=== PATIENT | male | born 1980 | race American Indian/Alaskan Native ===

== ENCOUNTER 2017-02-14 19:32 | Emergency (ER) | payer BC, OTHER ==
--- NOTE | 2017-02-14 20:11 | EDM.PDOC ---
ED HPI GENERAL MEDICAL PROBLEM - General Chief Complaint: Lower Extremity Injury/Pain Stated Complaint: ACHILLES RUPTURED, [id number] Time Seen by Provider: 02/14/17 20:07 Source of Information: Reports: Patient History Limitations: Reports: No Limitations - History of Present Illness INITIAL COMMENTS - FREE TEXT/NARRATIVE: Running to first base and felt loud pop in left heel. Unable to bear weight since. Sever pain to heel and posterior lower calf . Voices concern that he blew his achilles. Onset: Today, Sudden Location: Reports: Lower Extremity, Left Quality: Reports: Burning, Sharp, Throbbing Severity: Moderate Left Lower Posterior Leg Pain Score (Numeric/FACES): 10 - Related Data Allergies Allergy/AdvReac Type Severity Reaction Status Date / Time No Known Allergies Allergy Verified 02/14/17 19:39 Home Meds: Home Meds . [No Known Home Meds] 12/04/14 [History] Past Medical History - Past Health History Medical/Surgical History: Denies Medical/Surgical History Respiratory History: Reports: Sleep Apnea Dermatologic History: Reports: Psoriasis - Infectious Disease History Infectious Disease History: Reports: None - Past Surgical History GI Surgical History: Reports: Appendectomy Social & Family History - Tobacco Use Smoking Status *Q: Never Smoker Second Hand Smoke Exposure: No - Caffeine Use Caffeine Use: Reports: Coffee - Alcohol Use Days Per Week of Alcohol Use: 0 - Recreational Drug Use Recreational Drug Use: No Review of Systems - Review of Systems Review Of Systems: See Below Musculoskeletal: Reports: Foot Pain (left heel radiating up calf, unable to flex foot) Skin: Reports: No Symptoms ED EXAM, GENERAL - Physical Exam Exam: See Below Exam Limited By: No Limitations General Appearance: Alert, Moderate Distress Eye Exam: Bilateral Eye: EOMI Ears: Normal External Exam Nose: Normal Inspection Head: Atraumatic, Normocephalic Neck: Normal Inspection Respiratory/Chest: No Respiratory Distress Cardiovascular: Normal Peripheral Pulses, Regular Rate, Rhythm Peripheral Pulses: 2+: Posterior Tibial (L), Dorsalis Pedis (L) Back Exam: Full Range of Motion Extremities: Other (mild swelling left posterior ankle tender to heel area. severe pain with attempt to move foot. unable to flex or rotate foot. ). No: Normal Range of Motion ED TRAUMA EXTREMITY PROCEDURES - Splinting Left Lower Extremity Pre-Procedure NV Status: Normal Post-Procedure NV Status: Normal Splint Material: Fiberglass Splint Design: Posterior Applied & Form Fitted By: Provider Provider Post-Splint Application NV Check: NV Status Normal Complications: No Course - Vital Signs Last Recorded V/S: Last Vital Signs Temp 99.2 F 02/14/17 23:20 Pulse 77 02/14/17 23:20 Resp 16 02/14/17 23:20 BP 121/63 02/14/17 23:20 Pulse Ox 98 02/14/17 23:20 - Orders/Labs/Meds Meds: Medications Discontinued Medications Generic Name Dose Route Start Last Admin Trade Name Deann PRN Reason Stop Dose Admin Ibuprofen 600 mg 02/14/17 22:12 02/14/17 22:27 Motrin PO 02/14/17 22:13 600 mg ONETIME ONE Administration Oxycodone/Acetaminophen 1 tab 02/14/17 22:28 02/14/17 22:31 Percocet 325-5 Mg PO 02/14/17 22:29 1 tab ONETIME ONE Administration Oxycodone/Acetaminophen Confirm 02/14/17 23:24 02/14/17 23:28 Percocet 325-5 Mg Administered 02/14/17 23:25 Not Given Dose 2 tab .ROUTE .STK-MED ONE Oxycodone/Acetaminophen 2 tab 02/14/17 23:24 Percocet 325-5 Mg PO 02/14/17 23:25 .STK-MED ONE - Radiology Interpretation Free Text/Narrative:: CT ankle left, soft tissue swelling - Re-Assessments/Exams Free Text/Narrative Re-Assessment/Exam: 02/19/17 04:[address] Delgado ortho. Splint extremity and patient to be seen in [facility] in am. Departure - Departure Time of Disposition: 23:17 Disposition: Home, Self-Care 01 Condition: Fair Clinical Impression: Rupture of Achilles tendon - Discharge Information Instructions: Cast or Splint Care, [id number], Complete Achilles Tendon Rupture Referrals: Bella Owen MD [Primary Care Provider] - Forms: ED Department Discharge Additional Instructions: rest ice elevat splint non weight bearing, crutches ibuprofen 600mg alternating with tylenol every 4hours as needed for pain percocet 5/325 one every 6 hours as needed for severe pain Orthospecialist follow up on 02/21 at 810 am at [facility] Please call if need to cancel or reschedule.
[2017-02-14] MEDS ORDERED: Ibuprofen 600 MG Tab PO ONE (22:12)
[2017-02-14] MEDS ORDERED: Acetaminophen/oxyCODONE 325-5 MG Tab PO ONE ×2 (22:28→23:24)
[2017-02-14 23:22] VITALS: BP 121/63
[2017-02-14] MEDS ORDERED: Acetaminophen/oxyCODONE 325-5 MG Tab ONE (23:24)
== END 2017-02-14 23:33 | disposition home or self-care (01) ==
LOC: DL.ED 19:32
DX: S86.012A Strain of left Achilles tendon, initial encounter (principal); Z90.49 Acquired absence of other specified parts of digestive tract; X58.XXXA Exposure to other specified factors, initial encounter; Y93.02 Activity, running
CPT/HCPCS: 73700; 99284; A9270

== ENCOUNTER 2019-10-06 20:23 | Emergency (ER) | payer OTHER ==
[2019-10-06 20:55] VITALS: BP 151/87; PULSE 87
[2019-10-06] MEDS ORDERED: Oseltamivir 75 MG Cap PO ONE (22:29)
--- NOTE | 2019-10-06 22:30 | EDM.PDOC ---
ED HPI GENERAL MEDICAL PROBLEM - General Chief Complaint: Fever Stated Complaint: POSSILE FLU Time Seen by Provider: 10/06/19 22:25 Source of Information: Reports: Patient History Limitations: Reports: No Limitations - History of Present Illness INITIAL COMMENTS - FREE TEXT/NARRATIVE: she concerns department today with complaints of chills body aches fever and cough since yesterday morning. He feels very run down. He has a cough and congestion. Nonproductive cough. He has generalized body aches. He did not get his influenza vaccine this year. No vomiting or diarrhea or rash. No exposure to anyone ill. 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 [No Known Home Meds] 12/04/14 [History] Past Medical History - Past Health History Medical/Surgical History: Denies Medical/Surgical History Respiratory History: Reports: Asthma, Sleep Apnea Dermatologic History: Reports: Psoriasis - Infectious Disease History Infectious Disease History: Reports: None - Past Surgical History GI Surgical History: Reports: Appendectomy Social & Family History - Family History Family Medical History: Noncontributory - Tobacco Use Smoking Status *Q: Never Smoker Second Hand Smoke Exposure: No - Caffeine Use Caffeine Use: Reports: Coffee - Recreational Drug Use Recreational Drug Use: No ED ROS GENERAL - Review of Systems Review Of Systems: Comprehensive ROS is negative, except as noted in HPI. ED EXAM, GENERAL - Physical Exam Exam: See Below Free Text/Narrative:: appears mildly ill Exam Limited By: No Limitations General Appearance: Alert, WD/WN Eye Exam: Bilateral Eye: EOMI, Normal Inspection Ears: Normal External Exam, Normal TMs Nose: Normal Mucosa, No Blood, Nasal Drainage, Clear Rhinorrhea, Other ( erythematous turbinates with clear rhinorrhea) Throat/Mouth: Normal Inspection, Normal Lips, Normal Oropharynx Head: Atraumatic, Normocephalic Neck: Normal Inspection, Lymphadenopathy (L), Lymphadenopathy (R) Respiratory/Chest: No Respiratory Distress, Lungs Clear, Normal Breath Sounds, No Accessory Muscle Use Cardiovascular: Normal Peripheral Pulses, Regular Rate, Rhythm Peripheral Pulses: 2+: Radial (L), Radial (R), Posterior Tibial (L), Posterior Tibial (R), Dorsalis Pedis (L), Dorsalis Pedis (R) GI/Abdominal: Normal Bowel Sounds, Soft, Non-Tender Extremities: Normal Inspection, Normal Capillary Refill Neurological: Alert, Oriented, Normal Cognition, No Motor/Sensory Deficits Psychiatric: Normal Affect, Normal Mood Skin Exam: Intact, Normal Color, Diaphoretic, Increased Warmth Course - Vital Signs Last Recorded V/S: Last Vital Signs Temp 37.4 C 10/06/19 20:54 Pulse 87 10/06/19 20:54 Resp 16 10/06/19 20:54 BP 151/87 H 10/06/19 20:54 Pulse Ox 98 10/06/19 20:54 - Orders/Labs/Meds Labs: Microbiology 10/06/19 20:50 Influenza Type A Antigen Screen - Final Nasal, Left Positive Influenza A Ag Influenza Type B Antigen Screen - Final NEGATIVE INFLUENZA B VIRUS AG REFERENCE RANGE: NEGATIVE Meds: Medications Discontinued Medications Generic Name Dose Route Start Last Admin Trade Name Freq PRN Reason Stop Dose Admin Oseltamivir Phosphate 75 mg 10/06/19 22:29 10/06/19 22:37 Tamiflu PO 10/06/19 22:30 75 mg ONETIME ONE Administration - Re-Assessments/Exams Free Text/Narrative Re-Assessment/Exam: 10/06/19 22:40 influenza is positive. He does have a history of asthma. We will treat him with Tamiflu and symptomatically management. He is comfortable with this plan and his questions are answered. Departure - Departure Time of Disposition: 22:30 Disposition: Home, Self-Care 01 Clinical Impression: Influenza - Discharge Information Instructions: Influenza, Adult, [id number] Forms: ED Department Discharge Additional Instructions: Lots of rest over the next few days. No school or work until fever free for 24 hrs. Tylenol and or Ibuprofen as needed for pain fever body aches. Tamiflu 1 capsule twice daily for the next 5 days. First dose given in the ED and RX given to the patient #10. Return ot the ED if new or worsening symptoms. Follow up with PCP in the next 4-6 days if not improving sooner if worse. Sepsis Event Note - Evaluation Sepsis Screening Result: No Definite Risk - Focused Exam Vital Signs: Vital Signs Temp Pulse Resp BP Pulse Ox 10/06/19 20:54 37.4 C 87 16 151/87 H 98 Date Exam was Performed: 10/06/19 Time Exam was Performed: 22:39 - Assessment/Plan Assessment:: influenza hx of asthma Plan: Lots of rest over the next few days. No school or work until fever free for 24 hrs. Tylenol and or Ibuprofen as needed for pain fever body aches. Tamiflu 1 capsule twice daily for the next 5 days. First dose given in the ED and RX given to the patient #10. Return ot the ED if new or worsening symptoms. Follow up with PCP in the next 4-6 days if not improving sooner if worse.
== END 2019-10-06 22:39 | disposition home or self-care (01) ==
LOC: DL.ED 20:23
DX: J11.1 Influenza due to unidentified influenza virus with other respiratory manifestations (principal)
CPT/HCPCS: 87804; 99283; A9270